=== PATIENT | female | born 1990 | race Native Hawaiian/Other Pacific Islander ===

== ENCOUNTER 2017-12-23 19:44 | Inpatient (IN) ==
[2017-12-24 08:33] VITALS: RESP 16
[2017-12-25 08:38] VITALS: BP 113/71; PULSE 58; TEMP 98.5
== END 2017-12-25 17:13 | disposition home or self-care (01) ==
LOC: HOBED 19:44 → H2E 20:20 → H1EA 12-24 02:30
PROVIDERS: ADMIT Obstetrics & Gynecology; ATTEND Obstetrics & Gynecology